=== PATIENT | female | born 1950 | race Caucasian/White ===

== ENCOUNTER → 2018-04-03 13:06 | Outpatient (CLI) | payer MEDICARE, SELFPAY ==
[2018-04-03 14:11] LABS: Absolute Lymphocyte Count 2.14 X10^3/ul (0.83-4.51); Absolute Neutrophil Count 3.2 X10^3/uL (2.0-7.7); Basophil# 0.06 X10^3/uL; Eosinophil# 0.16 X10^3/uL; Eosinophils% 2.6 % (0-5); Lymphocyte # 2.14 X10^3/ul (4.0); Lymphocyte % 34.7 % (19-41); Mean Corp Hgb Conc 32.6 g/gl (32-36); Mean Corpuscular Hgb 31.1 pg (27.0-32.0); Mean Corpuscular Volume 95.6 fL (81-99); Monocyte# 0.56 X10^3/uL; Monocyte% 9.1 % (0-10); Neutrophil # 3.23 X10^3/uL (2.7-7.7); Neutrophil % 52.4 % (47-70); Platelet Count 248 K/mm3 (150-450); RBC Distribution Width CV 13.3 % (11.6-14.6); RBC Distribution Width SD 46.3 fl (35.1-43.9); White Blood Count 6.2 K/mm3 (4.4-11.0)
[2018-04-03 14:16] LABS: POSITIVE COUNT NO; POSITIVE DIFFERENTIAL NO; POSITIVE MORPHOLOGY NO
[2018-04-03 14:31] LABS: ALB/GLOB Ratio 1.2 RATIO (0.9-2.4); AST(SGOT) 17 U/L (15-37); Alanine Aminotransfer ALT/SGPT 23 U/L (13-56); Albumin, Serum 3.8 g/dL (3.2-5.0); Alkaline Phosphatase 58 U/L (45-117); Anion Gap 7 (5-15); BUN 13 mg/dL (7-18); BUN/Creat Ratio 14.2 RATIO (10-20); Calcium,Total 9.4 mg/dL (8.5-10.1); Chloride 108 mmol/L (98-107); Creatinine, Serum 0.92 mg/dL (0.55-1.02); EST Glomerular Filtration Rate 65 mL/min (>60); Est Glom Filt Rate - Afr Amer 78 mL/min (>60); Globulin 3.3 g/dL (2.2-4.2); Glucose 96 mg/dL (74-106); Potassium 4.4 mmol/L (3.5-5.1); Protein, Total 7.1 g/dL (6.4-8.2); Sodium Level 142 mmol/L (136-145)
== END ==
PROVIDERS: Family Provider Family Medicine; PCP Family Medicine; Visit Provider Internal Medicine Rheumatology
DX: M05.70 Rheumatoid arthritis with rheumatoid factor of unspecified site without organ or systems involvement (principal); M15.9 Polyosteoarthritis, unspecified; M17.0 Bilateral primary osteoarthritis of knee; Z79.899 Other long term (current) drug therapy
CPT/HCPCS: 36415; 80053; 85025

== ENCOUNTER → 2018-11-24 13:30 | Outpatient (CLI) | payer MEDICARE, SELFPAY ==
--- NOTE | 2018-11-24 13:30 | CT_ITS ---
STUDY: LOW DOSE CT LUNG CANCER SCREENING REASON FOR EXAM: Female, 68 years old. 51 pack-year smoking history. RADIATION DOSAGE (If Supplied By Facility): CTDIvol = ( 3.02 ) mGy, DLP = ( 102.69 ) mGycm TECHNIQUE: No contrast was administered. Low dose technique was utilized (average mAS-38 and kVp 120). 1.25 mm axial source images with a slice interval of 1.25-mm were reconstructed in lung windows. 2.5 mm axial source images with a slice interval of 2.5-mm were reconstructed in lung windows. 5.0 mm axial source images with a slice interval of 5.0-mm were reconstructed in soft tissue windows. Nodule measured using lung windows on PACS and/or independent workstation with automated measurement of minimum and maximum diameter. Nodule measurement reported as average diameter rounded to the nearest whole number. Growth is defined as an increase ins size of greater than 1.5 mm. COMPARISON: None. NODULES: Nodule #: 1 Density: Solid Lung location: Left upper lobe: Pleural-based Location in series: Series Number: 2 Image: 36 Size - D1 x D2 mm: 4 x 4 mm: 4 mm average diameter Margin: Smooth Shape: Round Calcification: Yes Fat: No Temporal comparison: None Nodule #: 2 Density: Solid Lung location: Right upper lobe: 0.4 cm from pleura Location in series: Series Number: 2 Image: 83 Size - D1 x D2 mm: 3 x 3 mm: 3 mm average diameter Margin: Smooth Shape: Rounded Calcification: No Fat: No Temporal comparison: None Nodule #: 3 Density: Solid Lung location: Right upper lobe: cm from pleura Location in series: Series Number: 2 Image: 119 Size - D1 x D2 mm: 6 x 5 mm: 6 mm average diameter Margin: Smooth Shape: Rounded Calcification: No Fat: No Temporal comparison: None Nodule #: 4 Density: Solid Lung location: Right middle lobe: 1.1 cm from pleura Location in series: Series Number: 2 Image: 122 Size - D1 x D2 mm: 5 x 3 mm: 4 mm average diameter Margin: Smooth Shape: Oval Calcification: No Fat: No Temporal comparison: None Nodule #: 5 Density: Solid Lung location: Left upper lobe: Pleural-based Location in series: Series Number: 2 Image: 140 Size - D1 x D2 mm: 2 x 2 mm: 2 mm average diameter Margin: Smooth Shape: Round Calcification: No Fat: No Temporal comparison: None Nodule #: 6 Density: Lung location: Right middle lobe: Pleural-based Location in series: Series Number: 2 Image: 153 Size - D1 x D2 mm: 5 x 4 mm: 5 mm average diameter Margin: Smooth Shape: Round Calcification: No Fat: No Temporal comparison: None Nodule #: 7 Density: Solid Lung location: Left lower lobe: 0.8 cm from pleura Location in series: Series Number: 2 Image: 181 Size - D1 x D2 mm: 5 x 4 mm: 5 mm average diameter Margin: Smooth Shape: Round Calcification: No Fat: No Temporal comparison: None Total lung nodules (excluding granulomas): 6 Emphysema: There is diffuse emphysematous changes of the lungs. Endobronchial lesion: None Aorta: There is atherosclerotic tortuosity of the thoracic aorta without aneurysm. Coronary arteries: There are coronary artery calcifications. Heart: Normal in size Pulmonary artery: Normal. Mediastinal nodes: None Other chest and abdominal findings: There is mild degenerative changes of the thoracic spine. There is a type I hiatal hernia. Calcified granuloma is seen in the spleen. CT/Low Dose CT Lung Screening IMPRESSION: Lung-RADS category 2 - Continue annual screening with LDCT in 12 months. IMPORTANT NOTES FOR USE: ACR Lung-RADS Version 1.0 Assessment Categories Release Date: February 14, 2014 Category: Coded 0-4 bases on nodule(s) with highest degree of suspicion. Negative screen is defined as categories 1 and 2; a positive screen is defined as categories 3 and 4. Category 3 and 4A nodules that are unchanged on interval CT should be coded as category 2, and individuals returned to screening in 12 months. Category 4X: Category 3 or 4 nodules with additional imaging findings that increase the suspicion of lung cancer, such as spiculation, GGN that doubles in size in 1 year, enlarged lymph notes, etc. Category Modifiers: S (significant finding unrelated to lung cancer) and C (prior history of treated lung cancer) may be added to the 0-4 Lung-RADS Electronically Signed: Ambrocio Fajardo DO at 22:18 EST Tel [phone], Service support ,
== END ==
PROVIDERS: Family Provider Family Medicine; PCP Family Medicine
DX: Z87.891 Personal history of nicotine dependence (principal); R91.8 Other nonspecific abnormal finding of lung field
CPT/HCPCS: G0297

== ENCOUNTER → 2019-05-25 | Outpatient (CLI) | payer MEDICARE, SELFPAY ==
[2018-11-24 13:11] VITALS: BMI 32.9
[2019-05-25 13:07] VITALS: BMI 33.5
--- NOTE | 2019-05-25 13:39 | CT_ITS ---
STUDY: CT CHEST WITHOUT CONTRAST REASON FOR EXAM: Female, 68 years old. History of lung nodules. RADIATION DOSAGE (If Supplied By Facility): CTDIvol = ( 16.45 ) mGy, DLP = ( 488.31 ) mGycm TECHNIQUE: Transaxial imaging was performed without the administration of intravenous contrast material. Multiplanar coronal and sagittal images were reformatted. Individualized dose optimization techniques were used for this CT. COMPARISON: Comparison is made with prior CT examination dated November 24, 2018. FINDINGS: Stable mild enlargement of the left lobe of the thyroid. Mild degree of emphysematous changes with centrilobular changes of more prominent in the upper lobes. Stable 4 mm well-defined nodule along the posterior aspect of the left upper lobe as seen on axial image #32. Stable partially calcified nodule in the anterior aspect of the right upper lobe are seen on axial image #74. This measures 3 mm. Stable 4.3 mm noncalcified nodule in the anterior aspect of the right middle lobe as seen on axial image #112. Increased markings in the anterior aspect of the lingular segment of the left upper lobe as well as in the right middle lobe suggestive of scarring. There are calcifications of the coronary arteries. There are multiple small lymph nodes within the mediastinum, which are normal in size and morphology most compatible with reactive lymph hyperplasia. Normal hilar regions. Normal unenhanced pulmonary arteries. There is atherosclerotic calcification of the aortic arch. There are multi-level degenerative changes of the thoracic spine. Moderate sized hiatal hernia. CT/Chest without Contrast IMPRESSION: Stable examination. Electronically Signed: Jose Sanchez, at 14:17 EDT , Service support ,
== END | disposition home or self-care (01) ==
PROVIDERS: Family Provider Family Medicine; PCP Family Medicine
DX: R91.8 Other nonspecific abnormal finding of lung field (principal)
CPT/HCPCS: 71250

== ENCOUNTER → 2019-12-15 09:58 | Outpatient (CLI) | payer MEDICARE, SELFPAY ==
[2019-12-08 14:38] VITALS: BMI 33.4
--- NOTE | 2019-12-15 | BRBX_PTH ---
PATIENT: RIGOBERTO LAMA LOC: [facility] U#:[id number] AGE/SX: 75/F ROOM: RE12/15/[address]: Dr. Wayne Stephens MD : [id number] BED: DIS: SPEC #: [id number] RECD: 12/15/19 11:56 STATUS: JUNO SUZETTE #: [id number] CARIN: 12/15/19 00:[address]: Wayne Stephens DEPT: SURGICAL PATHOLOGY RECD BY: Tonny Roca ENTERED: 12/15/19 11:56 SP TYPE: BREAST BX OTHR DR: Maisha Sheppard PA-C Tissues: Right breast, NOS Procedures: Surgery Specimen Level IV HEADER OPERATION: Right stereotactic breast biopsy PRE-OP DIAGNOSIS: Right breast 1 o'clock mid depth breast microcalcifications TISSUE SUBMITTED: Right core tissue ISCHEMIC TIME: 1 minute FIXATION TIME: 9 hours MICROSCOPIC DIAGNOSIS Right breast, 1 o'clock mid depth breast microcalcifications, stereotactic core biopsy: Hyalinized fibroadenoma with focal calcifications. Negative for atypia or malignancy. See comment. SHANE:reggie 12/16/19 COMMENT The specimen predominantly consists of fatty benign breast tissue. Correlation with clinical, radiologic findings and appropriate follow up are necessary. MICROSCOPIC DESCRIPTION Slides are reviewed. GROSS DESCRIPTION Received is one container labeled with the patient's name and not further designated. The specimen consists of multiple elongated fragments of [place]-yellow fibroadipose tissue that in aggregate measure 5 x 3 x 0.6 cm. The entire specimen is submitted in four cassettes. / SHANE:reggie 12/15/19 TC:1 CPT: 66978
== END ==
PROVIDERS: PCP Family Medicine; Referring Provider Surgery; Visit Provider Surgery
DX: D24.1 Benign neoplasm of right breast (principal); M06.9 Rheumatoid arthritis, unspecified; I10 Essential (primary) hypertension; K21.9 Gastro-esophageal reflux disease without esophagitis; Z79.82 Long term (current) use of aspirin; Z79.899 Other long term (current) drug therapy; Z87.891 Personal history of nicotine dependence
CPT/HCPCS: 19081; 88305; J7050; A4648

== ENCOUNTER → 2020-05-30 14:34 | Outpatient (CLI) | payer MEDICARE, SELFPAY ==
[2019-12-08 14:38] VITALS: BMI 33.4
[2020-05-30 14:03] VITALS: BMI 34.2
--- NOTE | 2020-05-30 14:35 | CT_ITS ---
STUDY: LOW DOSE CT LUNG CANCER SCREENING REASON FOR EXAM: Female, 69 years old. LUNG CANCER SCREENING. EX SMOKER . 50 PACK YEAR HISTORY. EMPHYSEMA RADIATION DOSAGE (If Supplied By Facility): CTDIvol = ( 2.55 ) mGy, DLP = ( 82.32 ) mGycm TECHNIQUE: No contrast was administered. Low dose technique was utilized (average mAS-38 and kVp 120). 1.25 mm axial source images with a slice interval of 1.25-mm were reconstructed in lung windows. 2.5 mm axial source images with a slice interval of 2.5-mm were reconstructed in lung windows. 5.0 mm axial source images with a slice interval of 5.0-mm were reconstructed in soft tissue windows. Nodule measured using lung windows on PACS and/or independent workstation with automated measurement of minimum and maximum diameter. Nodule measurement reported as average diameter rounded to the nearest whole number. Growth is defined as an increase ins size of greater than 1.5 mm. COMPARISON: Comparison is made with prior examination dated 05/25/2019. NODULES: Stable 4 mm noncalcified nodule in the anterior aspect of the right middle lobe as seen on axial image #113. Emphysema: Diffuse emphysematous changes with bullous formation in the upper lobes. Mild degree of increased linear markings in the anterior aspect of the right middle lobe as well as the lateral aspect of the lingular segment of the left upper lobe suggestive of scarring. Stable granuloma in the anterior aspect of the right upper lobe. Aorta: Atherosclerotic plaque formation of the aortic arch. Coronary arteries: Coronary artery calcification. Heart: Not enlarged. Pulmonary artery: Unremarkable. Mediastinal nodes: Small benign-appearing mediastinal lymph nodes. Other chest and abdominal findings: Moderate sized hiatal hernia. CT/Low Dose CT Lung Screening IMPRESSION: Lung-RADS category 2 - Continue annual screening with LDCT in 12 months. IMPORTANT NOTES FOR USE: ACR Lung-RADS Version 1.0 Assessment Categories Release Date: February 14, 2014 Category: Coded 0-4 bases on nodule(s) with highest degree of suspicion. Negative screen is defined as categories 1 and 2; a positive screen is defined as categories 3 and 4. Category 3 and 4A nodules that are unchanged on interval CT should be coded as category 2, and individuals returned to screening in 12 months. Category 4X: Category 3 or 4 nodules with additional imaging findings that increase the suspicion of lung cancer, such as spiculation, GGN that doubles in size in 1 year, enlarged lymph notes, etc. Category Modifiers: S (significant finding unrelated to lung cancer) and C (prior history of treated lung cancer) may be added to the 0-4 Lung-RADS Electronically Signed: Jose Sanchez, at 15:20 EDT , Service support ,
== END ==
PROVIDERS: PCP Family Medicine; Referring Provider Nurse Practitioner Family; Visit Provider Nurse Practitioner Family
DX: Z12.2 Encounter for screening for malignant neoplasm of respiratory organs (principal); Z87.891 Personal history of nicotine dependence
CPT/HCPCS: G0297

== ENCOUNTER → 2025-05-02 | Outpatient (CLI) | payer MEDICARE, SELFPAY ==
--- NOTE | 2025-05-02 07:14 | ECHOD_ITS ---
Reason For Study Reason For Study: CORONARY ARTERY DISEASE Procedure This was a 2D Doppler, Color Flow transthoracic echocardiogram. Exam performed in department. Left Ventricle Normal LV size. Mild concentric left ventricular hypertrophy. The LV ejection fraction is 65 %. Stage 1 diastolic dysfunction. Right Ventricle Normal right ventricle. Atria The left and right atria are normal. Mitral Valve Moderate focal mitral valve calcification. Mild (1+) mitral valve insufficiency. Tricuspid Valve Mild tricuspid valve insufficiency. Right ventricular systolic pressure estimated to be 42 mmHg. Aortic Valve Trisinus/trileaflet aortic valve. Moderate (2+) aortic valve insufficiency. Pulmonic Valve The pulmonic valve is not well visualized. Great Vessels Normal sized aortic root. Pericardium/Pleural No pericardial effusion. MMode/2D Measurements & Calculations LVIDd: 4.2 cm IVSd: 1.3 cm LVOT diam: 1.9 cm LVIDs: 2.1 cm LVPWd: 1.1 cm LVOT area: 2.7 cm2 RVDd: 3.3 cm FS: 49.6 % asc Aorta Diam: 3.5 cm LAV(MOD-bp): 21.1 ml LVAd ap4: 19.9 cm2 LAV(MOD-bp) Indexed: 11.5 ml/m2 LVLd ap4: 6.9 cm LAV(MOD-sp2): 23.8 ml EDV(MOD-sp4): 48.1 ml LAV(MOD-sp4): 17.6 ml EDV(sp4-el): 48.5 ml LVAs ap4: 10.0 cm2 LVLs ap4: 6.0 cm ESV(MOD-sp4): 14.0 ml ESV(sp4-el): 14.2 ml EF(MOD-sp4): 70.9 % EF(sp4-el): 70.8 % LVAd ap2: 17.7 cm2 SV(MOD-sp4): 34.2 ml SV(MOD-sp2): 24.0 ml LVLd ap2: 6.9 cm SI(MOD-sp4): 18.7 ml/m2 SI(MOD-sp2): 13.1 ml/m2 EDV(MOD-sp2): 37.0 ml EDV(sp2-el): 38.5 ml LVAs ap2: 9.9 cm2 LVLs ap2: 6.2 cm ESV(MOD-sp2): 13.1 ml ESV(sp2-el): 13.3 ml EF(MOD-sp2): 64.7 % SV(sp4-el): 34.4 ml Ao sinus diam: 2.[address] Junction: 2.4 cm LA dimension(2D): 2.8 cm LA A4 area: 8.9 cm2 RA A4 area: 10.5 cm2 TAPSE: 2.4 cm Time Measurements MV dec time: 0.25 sec Doppler Measurements & Calculations MV E max isak: 79.9 cm/sec Lat Peak E' Isak: 11.6 cm/sec Med Peak E' Isak: 10.8 cm/sec MV A max isak: 106.3 cm/sec E/E' lat: 6.9 E/E' med: 7.4 MV E/A: 0.75 MV dec slope: 313.4 cm/sec2 Ao V2 max: 162.6 cm/sec AI max isak: 434.0 cm/sec Ao max P.6 mmHg AI max P.5 mmHg Ao V2 mean: 101.7 cm/sec AI dec slope: 148.8 cm/sec2 Ao mean P.7 mmHg AI P1/2t: 854.3 msec Ao V2 VTI: 35.4 cm AV (velocity ratio): 0.85 GAIL(I,D): 2.3 cm2 GAIL(V,D): 2.3 cm2 LV V1 max: 133.7 cm/sec SV(LVOT): 82.6 ml PA V2 max: 97.5 cm/sec LV V1 max P.1 mmHg LV V1 mean P.5 mmHg LV V1 mean: 88.5 cm/sec LV V1 VTI: 30.1 cm TR max isak: 303.3 cm/sec TR max P.8 mmHg ECHO/Echo Complete Interpretation Summary Mild concentric left ventricular hypertrophy. The LV ejection fraction is 65 %. Stage 1 diastolic dysfunction. Mild (1+) mitral valve insufficiency. Mild tricuspid valve insufficiency. Right ventricular systolic pressure estimated to be 42 mmHg. Moderate (2+) aortic valve insufficiency. Ordering Physician: Nelson Morris Referring Physician: Nelson Morris MD Performed By: Silvia Rodriguez EMILY
--- NOTE | 2025-05-02 14:59 | STRESSREP_ITS ---
Stress Test Report Date: 05/02/2025 Procedure: Pharmacologic stress nuclear imaging study Indications: History of CAD Consent: Per the patient Procedure: The patient was initially tried for exercise stress however on account of leg fatigue, she was unable to exercise. Subsequently the test was changed to pharmacological stress. The patient underwent pharmacologic (Regadenoson 0.4mg ) evaluation with a peak heart rate of 68 beats per minute (47%predicted maximal heart rate) and a peak blood pressure of 126/80 mmHg. The baseline ECG demonstrated sinus rhythm with nonspecific ST changes. The peak pharmacologic ECG failed to show any diagnostic ischemic changes. There were no cardiac dysrhythmias pretest, during pharmacologic infusion, or recovery. There was no complaint of chest discomfort during pharmacologic infusion or recovery. The patient was injected with 13.2 millicuries of technetium 99m Cardiolite and subsequently rest SPECT Cardiolite nuclear imaging was obtained in the horizontal long, vertical long, and short axis views. The patient underwent pharmacologic (Regadenoson) evaluation. The patient was injected with 39.6 millicuries of technetium 99m Cardiolite and subsequently stress SPECT Cardiolite nuclear imaging was obtained in the horizontal long, vertical long, and short axis views. A gated Cardiolite study at peak stress was obtained. The examination was stopped secondary to completion of protocol. Rest and stress SPECT Cardiolite nuclear imaging status post realignment, normalization, and attenuation correction demonstrate no fixed or reversible perfusion defects. There is end systolic thickening and brightening. The gated Cardiolite study demonstrates myocardial thickening and inward wall motion. The reported LVEF is 88%. Impression: 1. Pharmacologic (Regadenoson) evaluation 2. Peak pharmacologic ECG with no diagnostic ischemic changes. 3. There were no cardiac dysrhythmias pretest, during pharmacologic infusion, or recovery. 5. Rest and stress SPECT Cardiolite nuclear imaging demonstrate relative uniform tracer uptake and myocardial perfusion appearing within normal limits. 6. The gated Cardiolite study reports an LVEF of 88%. This note was generated with [employer] software. It may contain incorrect words, spelling, and punctuation that were not noted in checking the note before signing.
== END | disposition home or self-care (01) ==
PROVIDERS: PCP Physician Assistant; Referring Provider Internal Medicine Cardiovascular Disease; Visit Provider Internal Medicine Cardiovascular Disease
DX: I25.10 Atherosclerotic heart disease of native coronary artery without angina pectoris (principal); I07.1 Rheumatic tricuspid insufficiency
CPT/HCPCS: 78452; 93017; 93306; A9500; A4216; J2785